=== PATIENT | female | born 2000 | race Two or more races ===

== ENCOUNTER 2022-07-09 20:45 | Observation (INO) | payer OTHER ==
[~2022-07-09] VITALS: Ht 165.1 cm; Wt 78.9 kg
[2022-07-09] MEDS ORDERED: PREN-96 PO (21:35)
[2022-07-09 22:56] LABS: Urine Bacteria FEW /hpf (None Seen); Urine Blood TRACE /uL (Negative); Urine Mucus FEW (None Seen); Urine WBC 1 /hpf (0 - 5)
== END 2022-07-09 23:23 | disposition home or self-care (01) ==
LOC: LDRP 20:45
PROVIDERS: ADMIT Obstetrics & Gynecology; ATTEND Obstetrics & Gynecology
DX: O99.891 Other specified diseases and conditions complicating pregnancy (principal); M54.9 Dorsalgia, unspecified; O36.8130 Decreased fetal movements, third trimester, not applicable or unspecified; O62.9 Abnormality of forces of labor, unspecified; O26.893 Other specified pregnancy related conditions, third trimester; N89.8 Other specified noninflammatory disorders of vagina; Z3A.37 37 weeks gestation of pregnancy; Z79.899 Other long term (current) drug therapy
CPT/HCPCS: 59025; 76818; 81001; 81002; 87210; 94760; G0378